=== PATIENT | male | born 1940 | race Caucasian/White ===

== ENCOUNTER 2019-12-09 09:14 | Day surgery (SDC) | payer OTHER, SELFPAY ==
[2019-12-04 12:14] VITALS: BMI 27.6
[2019-12-09] VITALS (9 sets, daily range): BP systolic 81–125; BP diastolic 29–87; PULSE 55–65; RESP 10–20; TEMP 36–36.7; O2SAT 94–96; BMI 27.6
--- NOTE | 2019-12-09 | DI.RAD.S_ITS ---
PROCEDURE: XR LUMBAR SPINE 1V INDICATIONS: L2-3, L3-4 LAMINECTOMY TECHNIQUE: 1 views of the lumbar spine were acquired. COMPARISON: [facility], CT, CT CHEST ABD PELVIS W CON, 08/09/2017, 16:44. [facility], CR, XR CHEST 2 VIEWS, 10/23/2017, 13:46. [facility], CR, XR LUMBAR SPINE 2 OR 3VW, 07/08/2017, 11:34. [facility], MR, MR LUMBAR SPINE WITHOUT CONTRAST, 09/25/2019, 12:35. [facility], CR, XR LUMBAR SPINE 2 OR 3 VIEWS, 10/13/2019, 14:05. FINDINGS: There is transitional anatomy. A lateral fluoroscopy view of the lumbar spine demonstrate a surgical probe posterior to L3-L4 based on the numbering scheme used in the comparison MRI dated 09/25/2019. IMPRESSION: Fluoroscopy for intraoperative localization. Dictated by: Joe Haywood M.D. on 12/09/2019 at 14:55 Approved by: Joe aHywood M.D. on 12/09/2019 at 15:06
[2019-12-09] MEDS: LACTATED RINGERS 1,000 ML 42 ML IV ×2 (09:51→13:42)
--- NOTE | 2019-12-09 12:10 | PM.PREOP ---
Pre-operative Note Interval Note History & Physical reviewed/Exam performed by Physician: Yes Changes to H&P: No
--- NOTE | 2019-12-09 12:26 | P.OP_ITS ---
Operative Date/Time/Diagnoses Date of procedure: 12/09/19 Time of procedure: 14:01 Pre-op diagnosis: Lumbar stenosis with radiculopathy Post-op diagnosis: same Procedure & Clinicians Procedure: L2-3, L3-4 laminectomies Use of microscope Placement of epidural catheter Same procedure as scheduled: Yes Indications: [age] year old male with intractable pain from stenosis. They had failed conservative management and requested operative intervention. Risks and benefits of surgery were discussed and appropriate consents were obtained. Surgeon: Tereso Henry Shampoo Assistant: Radha Bartlett Anesthesia Type: General Operative Notes Findings: None Closure Type: primary Specimen(s): none sent Estimated Blood Loss (mL): 20 Procedure in detail: Patient was brought to the operating room and intubated on the table. They were rolled over on the well-padded prone position on the [employer] table. A time-out was performed. Preoperative antibiotics were given. The back was prepped and draped in standard sterile fashion. Using fluoroscopy for localization, a 5 cm incision was made in the midline. We used Bovie to dissect through the lumbodorsal fascia and then subperiosteally dissect the paraspinal muscles off the right side. A marker was placed and x-ray was taken to confirm positioning. We then brought in the microscope. A right-sided laminectomy was performed at L2-3 and L3-4. We carefully depressed the dura and reached across the midline to decompress the opposite side. The neural foramen were cleared out. At the end, we could reach with the ball probe cephalad and caudally across the midline and to the foramen and everything was opened. The wound was irrigated. An epidural catheter was prepared with 8 mL of 0.25% Marcaine and 100 mcg of fentanyl. The dura was carefully depressed and the catheter was advanced 6 cm cephalad underneath remaining lamina without res istance. The fascia was then closed in layers. The epidural catheter was injected without complications. Vancomycin powder was placed in the wound. The superficial and the skin were closed. Sterile dressing was placed. Patient was rolled over extubated brought to recovery room with no complications. Complications: none Post-operative Condition: stable Disposition: PACU Plan for aftercare: Plan for discharge home today. Limited BLT x6 weeks
[2019-12-09] MEDS: CEFAZOLIN 2 GM/100 ML FROZ.PIGGY IV (12:29)
--- NOTE | 2019-12-09 12:56 | SUR.OPER ---
Prone on spine table, head in foam head support, padded chest and pelvic supports, gel pad at knees, lower legs supported by pillows; nipples, genitalia and toes free of pressure, arms secured on foam padded arm boards at <90 degrees abduction. Tape over blanket at thigh secured to table.
[2019-12-09] MEDS: THROMBIN (RECOMBINANT) 5,000 UNIT VIAL 5000 UNIT TOP (13:01)
[2019-12-09] MEDS: SODIUM CHLORIDE 0.9% 1,000 ML, GENTAMICIN 80 MG IRR (13:02)
[2019-12-09] MEDS: VANCOMYCIN 1,000 MG VIAL 1000 MG TOP (13:02)
[2019-12-09] MEDS: BUPIVACAINE 0.25% (PF) 8 ML, fentaNYL 100 MCG INJ (13:03)
--- NOTE | 2019-12-09 14:32 | SUR.PHASEI ---
Patient A/O. PAULA's x 4. DRSG CDI. Patient will be D/C'd today.
--- NOTE | 2019-12-09 15:03 | SUR.PHASEII ---
Patient still insisting that he would like to be discharged home today. Patient denies any pain. Patient consuming his third apple juice and eating crackers without difficulty. Patient denies any numbness or tingling . Able to picker feeder both legs independently without difficulty. to inpatient pharmacy to fill prescription for pain medication. VSS.
--- NOTE | 2019-12-09 15:15 | SUR.PHASEII ---
Patient able to ambulate with walker and denies any pain at this time. Patient denies any numbness or tingling.
[2019-12-09] MEDS: OXYCODONE/ACETAMINOPHEN 5/325 TABLET 1 TAB PO (15:21)
[2019-12-09] MEDS: ONDANSETRON 4 MG/2 ML INJ IV (15:21)
--- NOTE | 2019-12-09 15:46 | SUR.PHASEII ---
Assisted patient with changing into clothing. Patient to exit via wheelchair with this nurse. Home with family by private vehicle.
== END 2019-12-09 15:47 | disposition home or self-care (01) ==
LOC: OR 09:25 → AC 09:26
PROVIDERS: PCP Internal Medicine; Visit Provider Orthopaedic Surgery
PROC: (CPT 63047; principal; 2019-12-09 11:45)
DX: M48.062 Spinal stenosis, lumbar region with neurogenic claudication (principal); M54.16 Radiculopathy, lumbar region; I10 Essential (primary) hypertension; Z86.73 Personal history of transient ischemic attack (TIA), and cerebral infarction without residual deficits; I48.91 Unspecified atrial fibrillation; I25.10 Atherosclerotic heart disease of native coronary artery without angina pectoris; Z87.891 Personal history of nicotine dependence; G43.909 Migraine, unspecified, not intractable, without status migrainosus; Z79.01 Long term (current) use of anticoagulants
CPT/HCPCS: 63047; 63048; 72020; 76000; J0690; J1100; J2405; J2704; J3010